=== PATIENT | female | born 1990 | race Caucasian/White ===

== ENCOUNTER → 2020-09-23 09:09 | Outpatient (CLI) | payer OTHER, MEDICAID, SELFPAY ==
--- NOTE | 2020-09-23 | DI.MRI.S_ITS ---
PROCEDURE: MR PELIS WO/W CON INDICATIONS: Full incontinence of feces TECHNIQUE: Noncontrast axial and coronal T1 spin echo and STIR through the lumbosacral plexus region. Optional contrast may be given, followed by axial and coronal T1 spin echo with fat saturation through the sacral plexus. COMPARISON: None. FINDINGS: Image quality: Excellent. Lumbosacral plexus: Superior to the piriformis muscles, the pre-plexal structures appear normal, including the lumbosacral trunk and S1 root. Just anterior to the piriformis muscles, the sacral plexus proper demonstrates normal morphology (lumbosacral trunk, S1 to S3 nerve roots). Inferior to the piriformis muscles, the sciatic nerves appear normal. Soft tissues: The piriformis muscles appear symmetric in size. No presacral masses. Rectum appears normal in caliber and wall thickness. No pathologic free pelvic fluid. No visualized adenopathy by size criteria. Bones: Marrow is normal in overall signal. IMPRESSION: There is no evidence for presence of mass or inflammation impinging on the lumbosacral plexus. Morphology of the plexus is normal, no presacral inflammatory or neoplastic process is suspected. The visualized rectum appears normal morphologically. Etiology of current symptomatology is not found. Defacography evaluation may be warranted. Dictated by: Maxwell Hernandez M.D. on 09/23/2020 at 11:36 Approved by: Maxwell Hernandez M.D. on 09/23/2020 at 11:43
== END ==
PROVIDERS: Referring Provider Surgery; Visit Provider Surgery
DX: R15.9 Full incontinence of feces (principal)
CPT/HCPCS: 72197

== ENCOUNTER → 2024-01-19 14:42 | Outpatient (CLI) | payer OTHER, MEDICAID, SELFPAY ==
[2024-01-20 13:36] LABS: Candida species Negative (Negative); Gardnerella vaginalis Positive (Negative); Trichomoas vaginalis Negative (Negative)
== END ==
PROVIDERS: PCP Internal Medicine; Visit Provider Obstetrics & Gynecology
DX: N89.8 Other specified noninflammatory disorders of vagina (principal)
CPT/HCPCS: 87480; 87510; 87660

== ENCOUNTER → 2024-06-21 14:56 | Outpatient (CLI) | payer OTHER, SELFPAY ==
[2024-06-24 10:23] LABS: Candida species Negative (Negative); Gardnerella vaginalis Negative (Negative); Trichomoas vaginalis Negative (Negative)
== END ==
PROVIDERS: PCP Internal Medicine; Visit Provider Specialist
DX: N89.8 Other specified noninflammatory disorders of vagina (principal)
CPT/HCPCS: 87480; 87510; 87660

== ENCOUNTER 2024-06-28 17:59 | Emergency (ER) | payer OTHER, SELFPAY ==
[2024-06-28 18:25] VITALS: BP 128/71; PULSE 87; RESP 16; TEMP 36.2; O2SAT 99; BMI 40.0
[2024-06-28 19:00] LABS: Appearance Urine UA CLEAR; Bilirubin Urine UA NEGATIVE (NEGATIVE); Color Urine UA YELLOW; Glucose Urine UA NEGATIVE (Negative); Ketones Urine UA NEGATIVE (NEGATIVE); Leukocyte Esterase Urine UA NEGATIVE (NEGATIVE); Nitrite Urine UA NEGATIVE (Negative); Occult Blood Urine UA NEGATIVE (Negative); Protein Urine UA NEGATIVE (Negative); Specific Gravity Urine UA <=1.005 (1.000-1.035); Urobilinogen Urine UA 0.2 E.U./dL (0.2)
[2024-06-28 19:03] LABS: pH Urine UA 6.5 (4.5-8.0)
[2024-06-28 19:04] LABS: Pregnancy Test Urine Positive (Negative)
[2024-06-28 19:07] LABS: Bacteria Urine None Seen; Culture Indicated Urine Cult Not Indicated; RBC Urine None Seen (0-5/HPF); Squamous Epithelial Cell Urine None Seen (0-5/HPF); Urine Volume 10mL (spun); WBC Urine None Seen (0-5/HPF)
--- NOTE | 2024-06-28 20:01 | ED.PREGNANCY ---
HPI - General Chief complaint: Vaginal Bleeding Stated complaint: 7 wks, vaginal discharge Time Seen by Provider: 06/28/24 19:58 History of Present Illness HPI Narrative: at approximately 7 weeks gestational age presents for brown vaginal discharge. Denies abdominal pain. Already has confirmed IUP. Scheduled appointment with OBGYN next week. She states she noticed the discharge today and the OB triage line told her to come to the ER for an ultrasound for ?peace of mind?. Related Data Home Medications Medication Instructions Recorded Confirmed vitamin-ferrous sulfate tab PO 06/19/24 06/19/24 27 mg iron-folic acid 0.8 mg tablet Previous Rx's Medication Instructions Recorded enoxaparin 40 mg/0.4 mL 40 mg (0.4 mL) SUBCUT DAILY 06/21/24 subcutaneous syringe History of pulmonary embolus #30 multiple units Allergies Allergy/AdvReac Type Severity Reaction Status Date / Time latex [LATEX] Allergy Intermediate Rash Unverified 06/19/24 09:05 fluoxetine AdvReac Intermediate anger Verified 06/19/24 09:05 Exam Initial Vital Signs Initial Vital Signs: Vital Signs Temperature 97.1 F L 06/28/24 18:25 Pulse Rate 87 06/28/24 18:25 Respiratory Rate 16 06/28/24 18:25 Blood Pressure 128/71 06/28/24 18:25 Pulse Oximetry 99 06/28/24 18:25 Oxygen Delivery Method Room Air 06/28/24 18:25 Const: Awake, alert, no acute distress, nontoxic appearing Cardiac: regular rate, regular rhythm RESP: unlabored, conversational without dyspnea GI: Soft, nontender, nondistended Skin: Warm, Dry, intact, no rashes Neuro: AO x3, CN II-XII grossly intact, moves all extremities Course Orders Ordered: ED Orders 06/28/24 18:33 Test Urine Stat Urinalysis and Microscopic Stat 06/28/24 20:01 US OB <= 14 weeks fetus Stat 06/28/24 20:20 ABO RH Type Stat CBC Auto Diff [Complete Blood Count AUTO DIFF] Stat Vital Signs Vital signs: Vital Signs - 8 hr 06/28/24 18:25 Temperature 97.1 F L Pulse Rate 87 Respiratory Rate 16 Blood Pressure 128/71 Pulse Oximetry 99 Oxygen Delivery Method Room Air MDM - OB/Uterine Contractions Lab Data 06/28/24 20:20 Labs: Lab Results 06/28/24 06/28/24 Range/Units 18:33 20:20 WBC 6.4 (4.5-11.0) X10^3/uL RBC 4.23 (4.0-5.2) X10^6/uL Hgb 13.2 (12.0-16.0) g/dL Hct 38.8 (36-46) % MCV 91.7 (80-100) fL MCH 31.4 (26-34) PG MCHC 34.2 (30-36) % RDW 13.0 (11.6-14.8) % Plt Count 316 (150-400) X10^3/uL Neut % (Auto) 66.0 (50-75) % Lymph % (Auto) 23.9 L (25-40) % [place] % (Auto) 7.9 (3-14) % Eos % (Auto) 1.8 L (2-4) % Baso % (Auto) 0.4 (0-2) % Neut # (Auto) 4200 (2980-7790) /uL Lymph # (Auto) 1500 (6590-1896) /uL [place] # (Auto) 500 (0-900) /uL Eos # (Auto) 100 (0-450) /uL Baso # (Auto) 0 (0-100) /uL Urine Color Yellow Urine Appearance Clear Urine pH 6.5 (4.5-8.0) Ur Specific [place] <=1.005 (1.000-1.035) Urine Protein Negative (Negative) Urine Glucose (UA) Negative (Negative) g/dL Urine Ketones Negative (NEGATIVE) Urine Occult Blood Negative (Negative) Urine Nitrate Negative (Negative) Urine Bilirubin Negative (NEGATIVE) Urine Urobilinogen 0.2 (0.2) E.U./dL Ur Leukocyte Esterase Negative (NEGATIVE) Urine RBC None seen (0-5/HPF) Urine WBC None seen (0-5/HPF) Ur Squamous Epith Cells None seen (0-5/HPF) Urine Bacteria None seen (None) Ur Culture Indicated? Cult not indicated Vol Urine Centrifuged 10ml (spun) Urine Test Positive H (Negative) Blood Type A Positive Imaging Data US - OB: Radiologist's Impression: PROCEDURE: US OB <= 14 WEEKS FETUS INDICATIONS: vag bleed early preg OUTSIDE/PRIOR DATING DATA: Last menstrual period (LMP): 05/11/2024. LMP-based estimated date of delivery (ELIANA): 02/18/2025. TECHNIQUE: Real-time scanning was performed of the fetus and maternal pelvic organs, with image documentation. Endovaginal scanning was also performed to better visualize the fetus and maternal ovaries. COMPARISON: None. FINDINGS: Embryo: Intrauterine yolk sac is visualized. [place]-rump length measures 0.6 cm corresponding to estimated gestational age of 6 weeks, 3 days. Heart rate: 157 Maternal organs: Ovaries are within normal limits. Right corpus luteum cyst visualized. IMPRESSION: Single intrauterine gestation with estimated gestational age of 6 weeks, 3 days based on crown-rump length. heart rate detected. Approved by: Melissa Soto M.D.,Ph.D. on 06/28/2024 at 22:07 MDM Narrative Medical decision making narrative: vaginal discharge in early . Already confirmed IUP. Patient declined lab draw HCG quant. single IUP with heart tones detected. Patient eloped from ED prior to receiving instructions. Has OB appointment next week with Dr. De Jesus Discharge Plan Departure Patient Disposition: Elopement Clinical Impression: Eloped from emergency department, Vaginal discharge during Prescriptions: No Action vit-ferrous sulfat-FA 27 mg iron- 0.8 mg tablet PO enoxaparin 40 mg/0.4 mL syringe 40 mg SUBCUT DAILY Qty: 30 8RF Referrals: Jared Thakkar MD [Primary Care Provider] -
[2024-06-28 20:31] LABS: Add Manual Diff / Slide Review NO; Basophils Absolute Auto 0 /uL (0-100); Basophils Percent Auto 0.4 % (0-2); Eosinophils Absolute Auto 100 /uL (0-450); Eosinophils Percent Auto 1.8 % (2-4); Hematocrit 38.8 % (36-46); Hemoglobin 13.2 g/dL (12.0-16.0); Lymphocytes Absolute Auto 1500 /uL (1100-4500); Lymphocytes Percent Auto 23.9 % (25-40); Mean Corpuscular HGB Conc 34.2 % (30-36); Mean Corpuscular Hemoglobin 31.4 PG (26-34); Mean Corpuscular Volume 91.7 fL (80-100); Monocytes Absolute Auto 500 /uL (0-900); Monocytes Percent Auto 7.9 % (3-14); Neutrophils Absolute Auto 4200 /uL (1500-7000); Platelet Count 316 X10^3/uL (150-400); Red Blood Cell Count 4.23 X10^6/uL (4.0-5.2); White Blood Cell Count 6.4 X10^3/uL (4.5-11.0)
--- NOTE | 2024-06-28 22:18 | PC.NURSE ---
pt stated her daughter called and said her dog got her so she needed to leave and go home, she asked if her results would show on her portal, pt stated she also had a doctor's appt on Mon. Dr Sutherland informed. pt aao x 3 ambulatory without any difficulty resp even and unlabored
== END 2024-06-28 22:04 | disposition left against medical advice (07) ==
PROVIDERS: Emergency Provider Emergency Medicine; PCP Internal Medicine
DX: O99.891 Other specified diseases and conditions complicating pregnancy (principal); N89.8 Other specified noninflammatory disorders of vagina; Z3A.01 Less than 8 weeks gestation of pregnancy
CPT/HCPCS: 76801; 76817; 81001; 81025; 85025; 86900; 86901; 99283; 99284

== ENCOUNTER → 2024-07-03 11:32 | Outpatient (CLI) | payer OTHER, SELFPAY ==
[2024-07-03 14:46] LABS: Urine N gonorrhoeae NOT DETECTED
[2024-07-03 15:01] LABS: Urine Chlamydia NOT DETECTED
== END ==
PROVIDERS: PCP Internal Medicine; Visit Provider Obstetrics & Gynecology
DX: Z34.81 Encounter for supervision of other normal pregnancy, first trimester (principal); Z11.3 Encounter for screening for infections with a predominantly sexual mode of transmission
CPT/HCPCS: 87491; 87591

== ENCOUNTER → 2024-07-24 12:26 | Outpatient (CLI) | payer OTHER, SELFPAY ==
[2024-07-24 13:35] LABS: Natera Collection Specimen Collected
[2024-07-24 13:49] LABS: Add Manual Diff / Slide Review NO; Basophils Absolute Auto 0 /uL (0-100); Basophils Percent Auto 0.3 % (0-2); Eosinophils Absolute Auto 200 /uL (0-450); Eosinophils Percent Auto 2.7 % (2-4); Hematocrit 38.7 % (36-46); Hemoglobin 13.3 g/dL (12.0-16.0); Lymphocytes Absolute Auto 2900 /uL (1100-4500); Lymphocytes Percent Auto 32.7 % (25-40); Mean Corpuscular HGB Conc 34.4 % (30-36); Mean Corpuscular Hemoglobin 31.3 PG (26-34); Mean Corpuscular Volume 90.9 fL (80-100); Monocytes Absolute Auto 400 /uL (0-900); Monocytes Percent Auto 4.9 % (3-14); Neutrophils Absolute Auto 5300 /uL (1500-7000); Neutrophils Percent Auto 59.4 % (50-75); Platelet Count 330 X10^3/uL (150-400); Red Blood Cell Count 4.26 X10^6/uL (4.0-5.2); Red Cell Distribution Width 13.5 % (11.6-14.8)
[2024-07-24 14:02] LABS: Alanine Aminotransferase 20 IU/L (<35); Aspartate Aminotransferase 22 IU/L (14-36); BUN Creatinine Ratio 15.2 (6-22); Blood Urea Nitrogen 7 mg/dL (7-17); Estimated Glomerular Filt Rate > 60 mL/min (>60); Uric Acid 3.4 mg/dL (2.5-6.2)
[2024-07-25 22:26] LABS: Hepatitis B Surface Antigen NEGATIVE s/c (NEGATIVE); Rubella Antibody IgG 1.3 IU/mL (>15)
[2024-07-25 22:41] LABS: HIV 1 & 2 Ab/Ag 4th Gen Combo NEGATIVE (NEGATIVE); Hep C Virus Ab w/Reflex Quant NEGATIVE s/c (NEGATIVE)
[2024-07-26 05:09] LABS: RPR Screen Non Reactive (Non Reactive)
[2024-07-26 09:39] LABS: Varicella IgG Antibody Reactive (Non Reactive)
== END ==
PROVIDERS: Specialist; PCP Internal Medicine; Referring Provider Obstetrics & Gynecology; Visit Provider Obstetrics & Gynecology
DX: O09.299 Supervision of pregnancy with other poor reproductive or obstetric history, unspecified trimester (principal); O99.210 Obesity complicating pregnancy, unspecified trimester; O09.899 Supervision of other high risk pregnancies, unspecified trimester
CPT/HCPCS: 36415; 80055; 82565; 83036; 84450; 84460; 84520; 84550; 86787; 86803; 86850; 86900; 86901; 87086; 87389

== ENCOUNTER → 2024-08-26 11:11 | Outpatient (CLI) | payer OTHER, SELFPAY ==
[2024-08-26 12:06] LABS: Add Manual Diff / Slide Review NO; Basophils Absolute Auto 0 /uL (0-100); Basophils Percent Auto 0.2 % (0-2); Eosinophils Absolute Auto 300 /uL (0-450); Eosinophils Percent Auto 2.7 % (2-4); Hematocrit 34.6 % (36-46); Lymphocytes Absolute Auto 2200 /uL (1100-4500); Lymphocytes Percent Auto 20.8 % (25-40); Mean Corpuscular HGB Conc 34.6 % (30-36); Mean Corpuscular Hemoglobin 31.1 PG (26-34); Monocytes Absolute Auto 500 /uL (0-900); Monocytes Percent Auto 4.4 % (3-14); Neutrophils Absolute Auto 7500 /uL (1500-7000); Neutrophils Percent Auto 71.9 % (50-75); Platelet Count 239 X10^3/uL (150-400); Red Blood Cell Count 3.85 X10^6/uL (4.0-5.2); Red Cell Distribution Width 13.2 % (11.6-14.8); White Blood Cell Count 10.5 X10^3/uL (4.5-11.0)
== END ==
PROVIDERS: PCP Internal Medicine; Referring Provider Specialist; Visit Provider Specialist
DX: O20.9 Hemorrhage in early pregnancy, unspecified (principal)
CPT/HCPCS: 36415; 85025

== ENCOUNTER → 2024-09-12 11:02 | Outpatient (CLI) | payer OTHER, SELFPAY ==
[2024-09-14 18:36] LABS: AFP Value 32.6 ng/mL (.); Gest Age on Col Date 17.7 weeks (.); Insulin Dep Diabetes No (.); OSBR Risk 1IN 10000 (.); Results Report (.); Test Results *Screen Negative* (.)
[2024-09-18 07:51] LABS: PDF SEE SCANNED REPORTS
== END ==
PROVIDERS: PCP Internal Medicine; Referring Provider Specialist; Visit Provider Specialist
DX: Z34.82 Encounter for supervision of other normal pregnancy, second trimester (principal)
CPT/HCPCS: 36415; 82105

== ENCOUNTER → 2024-10-04 13:31 | Outpatient (CLI) | payer OTHER, SELFPAY ==
--- NOTE | 2024-10-04 13:33 | DI.US.S_ITS ---
PROCEDURE: US OB >= 14 WEEKS FETUS INDICATIONS: ANATOMY OUTSIDE/PRIOR DATING DATA: Working ELIANA: 02/15/2025 TECHNIQUE: Real-time scanning was performed of the fetus, with image documentation and biometric measurements. Endovaginal scanning: Not performed COMPARISON: Outside Facility, US, US OB >= 14 WEEKS FETUS, 09/19/2024, 9:46. FINDINGS: General: A single living intrauterine gestation is present. Presentation: Variable. Placenta: Placental position is anterior , without previa. Amniotic fluid index: 14.9 cm, normal range is 5-24 cm. Single deepest vertical pocket is 5.9 cm. heart rate: 150 beats per minute. Maternal cervical canal: 2.8 cm long. Normal lower limit is 2.5 cm. biometrics: Biparietal diameter: 4.8 cm, 20 weeks 3 days Head circumference: 17.4 cm, 20 weeks 0 days Abdominal circumference: 15.3 cm, 20 weeks 4 days Femur length: 3.3 cm, 20 weeks 3 days Clinically estimated gestational age: 20 weeks 6 days Composite gestational age from present scan: 20 weeks 3 days Estimated weight and percentile: 354 g, 24 percentile Anatomic survey: Neuro: Ventricles are non-dilated at less than 10 mm. Cisterna magna measures 2.7 mm (normal range of 3 mm). Cerebellum is normal in size and morphology. Nuchal skin fold: Normal at less than 6 mm between 14-21 weeks gestational age. Face: Nose and lips, facial profile are normal. Spine: No evidence for spina bifida. Heart: 4-chambered heart is present, with normal ventricular outflow tracts. Diaphragm: Diaphragm is intact. Stomach: Left-sided stomach is present. Kidneys: No hydronephrosis. Normal is less than 5 mm in 2nd trimester, less than 7 mm in 3rd trimester. Cord: 3-vessel cord has orthotopic insertion. Bladder: Normal in size. Extremities: All 4 extremities identified. IMPRESSION: Single living intrauterine at 20 weeks 6 days, ELIANA 02/15/2025. Estimated weight of 354 g, 24th percentile. Head circumference is small for gestational age at 9%. Cisterna magna measures 2.7 mm, which should technically measure 3 mm at this age. However, this could be due to positioning . Short-term follow-up could be considered. Posterior succenturiate lobe not appreciated. We strive to produce accurate, complete, and clear reports of imaging services. To assist us in improving patient care, this report was composed using standard report templates and voice recognition software. Therefore, it may contain abnormal punctuation, insertions and/or omissions. Occasional wrong-word or sound-alike substitutions may occur. Though we review the report and make efforts to correct it, we do recommend that the report be read carefully in proper context to recognize any text inaccuracies. Dictated by: Trevon Valdivia M.D. on 10/05/2024 at 7:28 Approved by: Trevon Valdivia M.D. on 10/05/2024 at 7:37
== END ==
PROVIDERS: PCP Internal Medicine; Referring Provider Specialist; Visit Provider Specialist
DX: Z34.92 Encounter for supervision of normal pregnancy, unspecified, second trimester (principal); Z3A.20 20 weeks gestation of pregnancy
CPT/HCPCS: 76811

== ENCOUNTER 2024-11-02 13:24 | Emergency (ER) | payer OTHER, SELFPAY ==
[2024-11-02] VITALS (8 sets, daily range): BP systolic 112–134; BP diastolic 60–75; PULSE 64–87; RESP 16; TEMP 36.9–37; O2SAT 91–100; BMI 42.0
--- NOTE | 2024-11-02 14:10 | ED.HA ---
HPI - Headache General Chief Complaint: Headache Stated Complaint: headache for 2 days 25 weeks Time Seen by Provider: 11/02/24 13:43 Mode of arrival: Ambulatory History of Present Illness HPI Narrative: 34y F with Hx of PE on lovenox and aspirin after 1st delivery, pre-eclampsia ELIANA 02/15/25 presents with headache whereby lights, sound bother her took tylenol at 8am with no relief of symptoms that starts in the front right side in moves all the way to the top of head along with nausea but no vomiting, diarrhea, chest pain, shortness of breath, fever, chills, stiff neck, . rash. No complications with this thus far. Other than what is stated 14 point review of system is negative. Related Data Home Medications ?Medication ?Instructions ?Recorded ?Confirmed vitamin-ferrous sulfate tab PO 06/19/24 10/10/24 27 mg iron-folic acid 0.8 mg tablet Previous Rx's ?Medication ?Instructions ?Recorded enoxaparin 40 mg/0.4 mL 40 mg (0.4 mL) SUBCUT DAILY 06/21/24 subcutaneous syringe History of pulmonary embolus #30 multiple units fluconazole 150 mg tablet 150 mg PO Q3D 2 doses #2 tabs 09/20/24 hydrocodone 5 mg-acetaminophen 300 1 tab PO Q4-6H PRN pain #20 tabs //25 mg tablet hydrocodone 5 mg-acetaminophen 300 1 tab PO Q4-6H PRN pain #20 tabs 06//25 mg tablet hydrocodone 5 mg-acetaminophen 325 1 tab PO Q4-6H PRN pain #20 tabs //25 mg tablet Allergies Allergy/AdvReac Type Severity Reaction Status Date / Time latex (LATEX) Allergy Intermediate Rash Verified 11/02/24 14:41 fluoxetine AdvReac Intermediate anger Verified 11/02/24 14:41 Patient History Medical History (Updated 11/02/24 @ 16:21 by Filipe Cruz DO) Preeclampsia Pulmonary embolism affecting (~2007) Surgical History (Updated 06/21/24 @ 15:15 by Zoë Gama MD) History of gynecologic surgery (~10/2008) History of rectal surgery (~07/19/22) Family History (Updated 06/19/24 @ 09:29 by Nichole Negrete RN) Mother Psychiatric disorder Hypothyroidism Diabetes mellitus Kidney stones DVT (deep venous thrombosis) Stroke Depression Anxiety Father Prediabetes Grandmother Lung cancer Smoker Grandmother Alcoholism Aunt Bipolar disorder Schizophrenia Daughter Anxiety Depression Social History marital status: unmarried,living together number of children: 1 household members: significant other and children lives independently: Yes caregiver/support person: Yes housing: apartment pets and animals: Yes (dog) education level: other occupational status: employed current occupational exposures/hazards: No special gabe needs: No travel history: over 6 months ago seatbelt use: always water heater temp set < 120 deg: Yes working smoke detector in home: Yes fire extinguisher in home: Yes carbon monox detector in home: Yes firearms in home: No do you feel safe at home: Yes Smoking Status: Current some day smoker Tobacco: How many years used: 18 quit status: considering quitting second hand exposure: Yes alcohol intake: former substance use type: marijuana during the past year weight has: remained stable well-balanced diet: about half the time daily servings fruits/ve-4 caffeine: Yes (16 ounce coffee, sips throughout the day) Type(s) of exercise: walking additional social history: Pt's mother was recently released from the hospital on hospice care, pt appears to be heavily involved in the situation but it is unclear how much responsibility she has for her mother's care as they do not live together. Smoking Status: Current some day smoker Exam Initial Vital Signs Initial Vital Signs: Vital Signs Temperature 98.6 F 11/02/24 13:28 Pulse Rate 85 11/02/24 13:28 Respiratory Rate 16 11/02/24 13:28 Blood Pressure 134/75 11/02/24 13:28 Pulse Oximetry 98 11/02/24 13:28 Oxygen Delivery Method Room Air 11/02/24 13:28 Course Orders Ordered: ED Orders 11/02/24 14:18 Urinalysis and Microscopic Stat 11/02/24 14:53 CBC Auto Diff [Complete Blood Count AUTO DIFF] Stat CMP [Comprehensive Metabolic Panel] Stat Discontinued Medications Hydrocodone Bitart/Acetaminophen (Hydrocodone/Acet 5/325 Tablet) 1 tab PO NOW ONE Stop: 11/02/24 14:29 Last Admin: 11/02/24 14:41 Dose: 1 tab Documented By: LM Vital Signs Vital signs: Vital Signs - 8 hr 11/02/24 13:28 11/02/24 14:17 11/02/24 14:18 Temperature 98.6 F Pulse Rate 85 87 Respiratory Rate 16 Blood Pressure 134/75 129/67 Pulse Oximetry 98 93 Oxygen Delivery Method Room Air 11/02/24 14:18 11/02/24 14:30 11/02/24 14:30 Temperature Pulse Rate 83 81 Respiratory Rate Blood Pressure 120/66 Pulse Oximetry 99 96 Oxygen Delivery Method 11/02/24 15:00 11/02/24 16:06 11/02/24 16:07 Temperature Pulse Rate 73 79 75 Respiratory Rate Blood Pressure Pulse Oximetry 91 93 98 Oxygen Delivery Method 11/02/24 16:07 Temperature Pulse Rate Respiratory Rate Blood Pressure 115/60 Pulse Oximetry Oxygen Delivery Method MDM - Headache Lab Data 11/02/24 14:53 11/02/24 14:53 Labs: Lab Results 11/02/24 11/02/24 Range/Units 14:18 14:53 WBC 10.5 (4.5-11.0) X10^3/uL RBC 3.52 L (4.0-5.2) X10^6/uL Hgb 11.0 L (12.0-16.0) g/dL Hct 32.3 L (36-46) % MCV 91.7 (80-100) fL MCH 31.4 (26-34) PG MCHC 34.2 (30-36) % RDW 14.4 (11.6-14.8) % Plt Count 318 (150-400) X10^3/uL Neut % (Auto) 72.6 (50-75) % Lymph % (Auto) 20.9 L (25-40) % [place] % (Auto) 4.4 (3-14) % Eos % (Auto) 1.7 L (2-4) % Baso % (Auto) 0.4 (0-2) % Neut # (Auto) 7700 H (0569-9052) /uL Lymph # (Auto) 2200 (3048-7614) /uL [place] # (Auto) 500 (0-900) /uL Eos # (Auto) 200 (0-450) /uL Baso # (Auto) 0 (0-100) /uL Sodium 133 L (137-145) mmol/L Potassium 3.8 (3.4-5.1) mmol/L Chloride 106 (98-107) mmol/L Carbon Dioxide 23 (22-32) mmol/L BUN 5 L (7-17) mg/dL Creatinine 0.45 L (0.52-1.04) mg/dL Estimated GFR > 60 (>60) mL/min BUN/Creatinine Ratio 11.1 (6-22) Glucose 85 (70-99) mg/dL Calcium 8.7 (8.4-10.2) mg/dL Total Bilirubin 0.4 (0.2-1.3) mg/dL AST 19 (14-36) IU/L ALT 14 (<35) IU/L Alkaline Phosphatase 46 (38-126) U/L Total Protein 6.4 (6.3-8.2) g/dL Albumin 3.4 L (3.5-5.0) g/dL Globulin 3.0 (1.7-4.1) g/dL Albumin/Globulin Ratio 1.1 (1.0-2.8) Urine Color Yellow Urine Appearance Clear Urine pH 6.5 (4.5-8.0) Ur Specific [place] <=1.005 (1.000-1.035) Urine Protein Negative (Negative) Urine Glucose (UA) Negative (Negative) g/dL Urine Ketones 1+ H (NEGATIVE) Urine Occult Blood Negative (Negative) Urine Nitrate Negative (Negative) Urine Bilirubin Negative (NEGATIVE) Urine Urobilinogen 0.2 (0.2) E.U./dL Ur Leukocyte Esterase Negative (NEGATIVE) Urine RBC None seen (0-5/HPF) Urine WBC 0-1/hpf (0-5/HPF) Ur Squamous Epith Cells 0-1 /hpf (0-5/HPF) Urine Bacteria None seen (None) Ur Culture Indicated? Cult not indicated Vol Urine Centrifuged 10ml (spun) MDM Narrative Medical decision making narrative: All lab work, vital signs, nurse triage note, medication list, previous ER visits all reviewed. 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 Differential diagnosis includes preeclampsia, atypical migraine, viral syndrome. All her labwork including normal white count hemoglobin stable at 11 chemistries including LFT were normal. Keep hydrated and to return with new or worsening symptoms Discharge Plan Departure Patient Disposition: Home Clinical Impression: Migraine Qualifiers: Migraine type: persistent migraine aura without cerebral infarction Status migrainosus presence: without status migrainosus Intractability: intractable Qualified Code(s): G43.519 - Persistent migraine aura without cerebral infarction, intractable, without status migrainosus Qualifiers: Weeks of gestation: 25 weeks Qualified Code(s): Z3A.25 - 25 weeks gestation of Instructions: DI for Migraine Activity Restrictions/Additional Instructions: Return with new or worsening symptoms. Take your medicines as directed. Follow up with OBGYN appointment this coming Monday. Prescriptions: New hydrocodone-acetaminophen 5-325 mg tablet 1 tab PO Q4-6H PRN (Reason: pain) Qty: 20 0RF hydrocodone-acetaminophen 5-300 mg tablet 1 tab PO Q4-6H PRN (Reason: pain) Qty: 20 0RF hydrocodone-acetaminophen 5-300 mg tablet 1 tab PO Q4-6H PRN (Reason: pain) Qty: 20 0RF No Action fluconazole 150 mg tablet 150 mg PO Q3D Qty: 2 0RF vit-ferrous sulfat-FA 27 mg iron- 0.8 mg tablet PO enoxaparin 40 mg/0.4 mL syringe 40 mg SUBCUT DAILY Qty: 30 8RF Referrals: Jared Thakkar MD [Primary Care Provider, Internal Medicine] Stand Alone Forms: Patient Portal/API
--- NOTE | 2024-11-02 14:24 | PC.NURSE ---
Pt laying on left side on stretcher w/ dark glasses on in position of comfort as pt states is 25wks . Pt denies chest pain, shortness of breath, nausea at this time. Pt states that symptoms worsen with light, movement, and noise. Call light within reach, A&Ox4, RA, NAD, breathing even/equal/unlabored at this time
[2024-11-02 14:40] LABS: Appearance Urine UA CLEAR; Bilirubin Urine UA NEGATIVE (NEGATIVE); Color Urine UA YELLOW; Glucose Urine UA NEGATIVE (Negative); Ketones Urine UA 1+ (NEGATIVE); Leukocyte Esterase Urine UA NEGATIVE (NEGATIVE); Nitrite Urine UA NEGATIVE (Negative); Occult Blood Urine UA NEGATIVE (Negative); Protein Urine UA NEGATIVE (Negative); Specific Gravity Urine UA <=1.005 (1.000-1.035); Urobilinogen Urine UA 0.2 E.U./dL (0.2)
[2024-11-02] MEDS: HYDROCODONE/ACET 5/325 TABLET 1 TAB PO (14:41)
[2024-11-02 14:43] LABS: pH Urine UA 6.5 (4.5-8.0)
[2024-11-02 14:49] LABS: Bacteria Urine None Seen; Culture Indicated Urine Cult Not Indicated; RBC Urine None Seen (0-5/HPF); Squamous Epithelial Cell Urine 0-1 /HPF (0-5/HPF); Urine Volume 10mL (spun); WBC Urine 0-1/HPF (0-5/HPF)
[2024-11-02 15:02] LABS: Add Manual Diff / Slide Review NO; Basophils Absolute Auto 0 /uL (0-100); Basophils Percent Auto 0.4 % (0-2); Eosinophils Absolute Auto 200 /uL (0-450); Eosinophils Percent Auto 1.7 % (2-4); Hematocrit 32.3 % (36-46); Lymphocytes Absolute Auto 2200 /uL (1100-4500); Lymphocytes Percent Auto 20.9 % (25-40); Mean Corpuscular HGB Conc 34.2 % (30-36); Mean Corpuscular Hemoglobin 31.4 PG (26-34); Mean Corpuscular Volume 91.7 fL (80-100); Monocytes Absolute Auto 500 /uL (0-900); Monocytes Percent Auto 4.4 % (3-14); Neutrophils Absolute Auto 7700 /uL (1500-7000); Neutrophils Percent Auto 72.6 % (50-75); Platelet Count 318 X10^3/uL (150-400); Red Blood Cell Count 3.52 X10^6/uL (4.0-5.2); Red Cell Distribution Width 14.4 % (11.6-14.8); White Blood Cell Count 10.5 X10^3/uL (4.5-11.0)
[2024-11-02 16:03] LABS: Alanine Aminotransferase 14 IU/L (<35); Albumin 3.4 g/dL (3.5-5.0); Albumin Globulin Ratio 1.1 (1.0-2.8); Alkaline Phosphatase 46 U/L (38-126); Aspartate Aminotransferase 19 IU/L (14-36); BUN Creatinine Ratio 11.1 (6-22); Bilirubin Total 0.4 mg/dL (0.2-1.3); Blood Urea Nitrogen 5 mg/dL (7-17); Calcium 8.7 mg/dL (8.4-10.2); Carbon Dioxide 23 mmol/L (22-32); Chloride 106 mmol/L (98-107); Estimated Glomerular Filt Rate > 60 mL/min (>60); Glucose 85 mg/dL (70-99); HEMOLYSIS < 15 (0-50); Potassium 3.8 mmol/L (3.4-5.1); Sodium 133 mmol/L (137-145); Total Protein 6.4 g/dL (6.3-8.2)
--- NOTE | 2024-11-02 16:11 | PC.NURSE ---
Pt resting on left side, NAD, RA, breathing even/equal/unlabored, A&Ox4. Pt c/o headache without relief from medication. Provider updated that pt c/o headache. Call light within reach, no needs at this time
== END 2024-11-02 16:43 | disposition home or self-care (01) ==
PROVIDERS: Emergency Provider Family Medicine; PCP Internal Medicine
DX: O26.92 Pregnancy related conditions, unspecified, second trimester (principal); G43.519 Persistent migraine aura without cerebral infarction, intractable, without status migrainosus; Z3A.25 25 weeks gestation of pregnancy
CPT/HCPCS: 80053; 81001; 85025; 99283

== ENCOUNTER 2024-11-04 17:09 | Outpatient (CLI) | payer OTHER, SELFPAY ==
--- NOTE | 2024-11-04 17:58 | PM.OBTRLD ---
Visit Information Visit Information Date of evaluation: 11/04/24 On-call OB Provider: Cindy Sparks Comments/Additional reasons for admission: headache, currently 09/05 Vital Signs Vital Signs: vitals reviewed over the phone with nursing, all blood pressures <140/90 PFSH Medical History (Updated 11/04/24 @ 17:59 by Cindy Sparks DO) Preeclampsia Pulmonary embolism affecting (~2007) Surgical History (Updated 06/21/24 @ 15:15 by Zoë Gama MD) History of gynecologic surgery (~10/2008) History of rectal surgery (~07/19/22) Family History (Updated 06/19/24 @ 09:29 by Nichole Negrete RN) Mother Psychiatric disorder Hypothyroidism Diabetes mellitus Kidney stones DVT (deep venous thrombosis) Stroke Depression Anxiety Father Prediabetes Grandmother Lung cancer Smoker Grandmother Alcoholism Aunt Bipolar disorder Schizophrenia Daughter Anxiety Depression Social History marital status: unmarried,living together number of children: 1 household members: significant other and children lives independently: Yes caregiver/support person: Yes housing: apartment pets and animals: Yes (dog) education level: other occupational status: employed current occupational exposures/hazards: No special gabe needs: No travel history: over 6 months ago seatbelt use: always water heater temp set < 120 deg: Yes working smoke detector in home: Yes fire extinguisher in home: Yes carbon monox detector in home: Yes firearms in home: No do you feel safe at home: Yes Tobacco: How many years used: 18 quit status: considering quitting second hand exposure: Yes alcohol intake: former substance use type: marijuana during the past year weight has: remained stable well-balanced diet: about half the time daily servings fruits/ve-4 caffeine: Yes (16 ounce coffee, sips throughout the day) Type(s) of exercise: walking additional social history: Pt's mother was recently released from the hospital on hospice care, pt appears to be heavily involved in the situation but it is unclear how much responsibility she has for her mother's care as they do not live together. Diagnosis, Plan/Disposition Final Diagnosis (1) Headache in : Status: Acute Plan/Disposition Plan: 34yo at 25+2wks presented to triage for worsening headaches in . She was seen in the ER over the weekend for headache, and received vicodin prescription, which wasn't helping. Currently in triage, her headache was a 4/10, and patient declined any IV medication for treatment. -will trial fioricet outpatient -advised to follow-up in clinic as scheduled OB Disposition: home
== END 2024-11-04 18:05 | disposition home or self-care (01) ==
LOC: LABOR 17:19 → OB 11-05 12:17
PROVIDERS: PCP Nurse Practitioner Acute Care; Referring Provider Obstetrics & Gynecology; Visit Provider Student in an Organized Health Care Education/Training Program
DX: O26.892 Other specified pregnancy related conditions, second trimester (principal); R51.9 Headache, unspecified; Z3A.25 25 weeks gestation of pregnancy
CPT/HCPCS: 59025; G0378; G0379

== ENCOUNTER → 2024-11-06 10:47 | Outpatient (CLI) | payer OTHER, SELFPAY ==
[2024-11-06 12:51] LABS: Hematocrit 31.6 % (36-46)
[2024-11-06 13:12] LABS: GTT (PREG) 1 Hour PP 50gm Dose 110 mg/dL (76-139)
== END ==
LOC: LAB 10:48
PROVIDERS: PCP Nurse Practitioner Acute Care; Referring Provider Obstetrics & Gynecology; Visit Provider Physician Assistant
DX: Z34.82 Encounter for supervision of other normal pregnancy, second trimester (principal); Z3A.26 26 weeks gestation of pregnancy
CPT/HCPCS: 36415; 82950; 85014; 85018

== ENCOUNTER → 2024-11-27 11:28 | Outpatient (CLI) | payer OTHER, SELFPAY ==
[2024-11-28 15:10] LABS: Trichomoas vaginalis Negative (Negative)
== END ==
PROVIDERS: PCP Nurse Practitioner Acute Care; Visit Provider Obstetrics & Gynecology
DX: Z11.3 Encounter for screening for infections with a predominantly sexual mode of transmission (principal); N89.8 Other specified noninflammatory disorders of vagina
CPT/HCPCS: 87480; 87491; 87510; 87563; 87591; 87660

== ENCOUNTER → 2024-12-10 08:36 | Outpatient (CLI) | payer OTHER, SELFPAY ==
--- NOTE | 2024-12-10 08:36 | DI.CT.S_ITS ---
PROCEDURE: CT HEAD/BRAIN WO CON INDICATIONS: Headaches TECHNIQUE: Noncontrast 4.5 mm thick angled axial sections acquired from the foramen magnum to the vertex, with coronal and sagittal reformats. For radiation dose reduction, the following was used: automated exposure control, adjustment of mA and/or kV according to patient size. COMPARISON: None. FINDINGS: Image quality: Excellent. Some images are limited by beam hardening artifacts most notably at the base of the skull. Ventricles and cortical sulci are within normal limits in size. No CT evidence of intracranial hemorrhage, mass lesion, mass effect, acute or subacute infarct. The orbits, scalp, calvarium, paranasal sinuses, mastoid air cells, middle ear cavities within normal limits. IMPRESSION: Negative CT head without contrast. If symptoms persist or worsen, or there is high clinical suspicion of intracranial abnormality, MRI could be performed. Dictated by: Roberth Fletcher M.D. on 12/10/2024 at 9:02 Approved by: Roberth Fletcher M.D. on 12/10/2024 at 9:28
== END ==
PROVIDERS: PCP Nurse Practitioner Acute Care; Referring Provider Obstetrics & Gynecology; Visit Provider Obstetrics & Gynecology
DX: O26.899 Other specified pregnancy related conditions, unspecified trimester (principal); R51.9 Headache, unspecified
CPT/HCPCS: 70450

== ENCOUNTER 2024-12-25 09:36 | Outpatient (CLI) | payer OTHER, SELFPAY | END 2024-12-25 10:35 | disposition home or self-care (01) | LOC: LABOR 10:14 → OB 12:59 | PROVIDERS: PCP Nurse Practitioner Acute Care; Referring Provider Obstetrics & Gynecology; Visit Provider Obstetrics & Gynecology | DX: O99.333 Smoking (tobacco) complicating pregnancy, third trimester (principal); F17.210 Nicotine dependence, cigarettes, uncomplicated; Z3A.32 32 weeks gestation of pregnancy | CPT/HCPCS: 59025; G0378; G0379 ==

== ENCOUNTER 2025-01-02 15:19 | Outpatient (CLI) | payer OTHER, SELFPAY | END 2025-01-02 16:15 | disposition home or self-care (01) | LOC: OB 01-03 08:14 | PROVIDERS: PCP Nurse Practitioner Acute Care; Referring Provider Obstetrics & Gynecology; Visit Provider Obstetrics & Gynecology | DX: O14.93 Unspecified pre-eclampsia, third trimester (principal); O99.333 Smoking (tobacco) complicating pregnancy, third trimester; F17.210 Nicotine dependence, cigarettes, uncomplicated; O99.213 Obesity complicating pregnancy, third trimester; E66.9 Obesity, unspecified; Z3A.33 33 weeks gestation of pregnancy | CPT/HCPCS: 59025; G0378; G0379 ==

== ENCOUNTER 2025-01-08 12:06 | Outpatient (CLI) | payer OTHER, SELFPAY | END 2025-01-08 13:00 | disposition home or self-care (01) | LOC: OB 01-10 07:16 | PROVIDERS: PCP Nurse Practitioner Acute Care; Referring Provider Obstetrics & Gynecology; Visit Provider Obstetrics & Gynecology | DX: O14.93 Unspecified pre-eclampsia, third trimester (principal); O99.213 Obesity complicating pregnancy, third trimester; E66.9 Obesity, unspecified; O99.333 Smoking (tobacco) complicating pregnancy, third trimester; F17.210 Nicotine dependence, cigarettes, uncomplicated; O99.513 Diseases of the respiratory system complicating pregnancy, third trimester; Z3A.34 34 weeks gestation of pregnancy | CPT/HCPCS: 59025; G0378; G0379 ==

== ENCOUNTER 2025-01-24 11:43 | Outpatient (CLI) | payer OTHER, SELFPAY ==
--- NOTE | 2025-01-24 15:12 | PM.OBTRLD ---
Visit Information Visit Information Date of evaluation: 01/24/25 Primary OB Provider: Renee De Jesus On-call OB Provider: Renee De Jesus Reason for Evaluation: Yes non-stress test [facility] Medical History (Updated 01/09/25 @ 08:22 by Renee De Jesus MD) Preeclampsia Pulmonary embolism affecting (~2007) Surgical History (Updated 06/21/24 @ 15:15 by Zoë Gama MD) History of gynecologic surgery (~10/2008) History of rectal surgery (~07/19/22) Family History (Updated 06/19/24 @ 09:29 by Nichole Negrete RN) Mother Psychiatric disorder Hypothyroidism Diabetes mellitus Kidney stones DVT (deep venous thrombosis) Stroke Depression Anxiety Father Prediabetes Grandmother Lung cancer Smoker Grandmother Alcoholism Aunt Bipolar disorder Schizophrenia Daughter Anxiety Depression Social History marital status: unmarried,living together number of children: 1 household members: significant other and children lives independently: Yes caregiver/support person: Yes housing: apartment pets and animals: Yes (dog) education level: other occupational status: employed current occupational exposures/hazards: No special gabe needs: No travel history: over 6 months ago seatbelt use: always water heater temp set < 120 deg: Yes working smoke detector in home: Yes fire extinguisher in home: Yes carbon monox detector in home: Yes firearms in home: No do you feel safe at home: Yes Tobacco: How many years used: 18 quit status: considering quitting second hand exposure: Yes alcohol intake: former substance use type: marijuana during the past year weight has: remained stable well-balanced diet: about half the time daily servings fruits/ve-4 caffeine: Yes (16 ounce coffee, sips throughout the day) Type(s) of exercise: walking additional social history: Pt's mother was recently released from the hospital on hospice care, pt appears to be heavily involved in the situation but it is unclear how much responsibility she has for her mother's care as they do not live together.
== END 2025-01-24 12:23 | disposition home or self-care (01) ==
LOC: OB 13:15
PROVIDERS: PCP Nurse Practitioner Acute Care; Referring Provider Obstetrics & Gynecology; Visit Provider Obstetrics & Gynecology
DX: O14.93 Unspecified pre-eclampsia, third trimester (principal); O99.213 Obesity complicating pregnancy, third trimester; E66.9 Obesity, unspecified; O99.333 Smoking (tobacco) complicating pregnancy, third trimester; F17.200 Nicotine dependence, unspecified, uncomplicated; Z3A.36 36 weeks gestation of pregnancy
CPT/HCPCS: 59025; 87653; G0378; G0379

== ENCOUNTER 2025-02-04 10:10 | Observation (INO) | payer OTHER, SELFPAY | END 2025-02-04 11:15 | disposition home or self-care (01) | PROVIDERS: Admitting Provider Obstetrics & Gynecology; PCP Nurse Practitioner Acute Care; Referring Provider Obstetrics & Gynecology; Visit Provider Obstetrics & Gynecology | DX: O14.93 Unspecified pre-eclampsia, third trimester (principal); O99.333 Smoking (tobacco) complicating pregnancy, third trimester; F17.200 Nicotine dependence, unspecified, uncomplicated; O99.213 Obesity complicating pregnancy, third trimester; E66.9 Obesity, unspecified; O99.513 Diseases of the respiratory system complicating pregnancy, third trimester; J45.909 Unspecified asthma, uncomplicated; Z3A.38 38 weeks gestation of pregnancy | CPT/HCPCS: 59025; G0378; G0379 ==

== ENCOUNTER 2025-02-07 12:23 | Outpatient (CLI) | payer OTHER, SELFPAY | END 2025-02-07 13:22 | disposition home or self-care (01) | LOC: LABOR 13:03 → OB 02-10 11:32 | PROVIDERS: PCP Nurse Practitioner Acute Care; Referring Provider Obstetrics & Gynecology; Visit Provider Obstetrics & Gynecology | DX: O36.8130 Decreased fetal movements, third trimester, not applicable or unspecified (principal); Z3A.38 38 weeks gestation of pregnancy | CPT/HCPCS: G0378; G0379 ==

== ENCOUNTER 2025-03-31 08:31 | Emergency (ER) | payer OTHER, SELFPAY ==
[2025-03-31] VITALS (12 sets, daily range): BP systolic 89–135; BP diastolic 55–78; PULSE 62–86; RESP 12–20; TEMP 36.6; O2SAT 93–99; BMI 41.3
--- NOTE | 2025-03-31 08:46 | EKG_ITS ---
[facility]
--- NOTE | 2025-03-31 08:46 | DI.RAD.S_ITS ---
PROCEDURE: XR CHEST 1V
[2025-03-31 09:12] LABS: Add Manual Diff / Slide Review NO; Hematocrit 35.7 % (36-46); Hemoglobin 12.1 g/dL (12.0-16.0); Lymphocytes Absolute Auto 2300 /uL (1100-4500); Mean Corpuscular HGB Conc 33.8 % (30-36); Mean Corpuscular Hemoglobin 30.3 PG (26-34); Mean Corpuscular Volume 89.5 fL (80-100); Platelet Count 263 X10^3/uL (150-400)
[2025-03-31 09:13] LABS: HEMOLYSIS < 15 (0-50)
[2025-03-31 09:14] LABS: INR 1.0 (0.9-1.3); Prothrombin Time 11.0 SECONDS (9.4-12.5)
[2025-03-31 09:16] LABS: PTT Partial Thromboplastin Tim 25 SECONDS (25.1-36.5)
[2025-03-31 09:18] LABS: Alanine Aminotransferase 52 IU/L (<35); Albumin 3.7 g/dL (3.5-5.0); Albumin Globulin Ratio 1.2 (1.0-2.8); Alkaline Phosphatase 56 U/L (38-126); Blood Urea Nitrogen 16 mg/dL (7-17); Calcium 8.9 mg/dL (8.4-10.2); Carbon Dioxide 23 mmol/L (22-32); Chloride 107 mmol/L (98-107); Creatine Kinase 49 U/L (30-135); Estimated Glomerular Filt Rate > 60 mL/min (>60); Globulin 3.2 g/dL (1.7-4.1); Glucose 94 mg/dL (70-99); Lipase 59 U/L (23-300); Magnesium 1.7 mg/dL (1.6-2.3); Potassium 3.7 mmol/L (3.4-5.1); Sodium 136 mmol/L (137-145); Total Protein 6.9 g/dL (6.3-8.2)
[2025-03-31 09:29] LABS: NT-proBNP (BNP-Adult 18+) 79 pg/mL (<125)
[2025-03-31 09:32] LABS: Troponin I < 0.012 ng/mL (0.01-0.034)
--- NOTE | 2025-03-31 09:36 | ED_ITS ---
HPI - SOB/Dyspnea
--- NOTE | 2025-03-31 09:36 | ED.SOB ---
HPI - SOB/Dyspnea General Chief Complaint: Shortness of Breath/Dyspnea Stated Complaint: SOB, left rib pain. Time Seen by Provider: 03/31/25 09:36 Source: patient, RN notes reviewed and old records reviewed Mode of arrival: Ambulatory Limitations: no limitations History of Present Illness HPI Narrative: 34-year-old female history of pulmonary embolism 17 years prior while patient is a proximally 7 weeks with just completed her Lovenox shots recently and presents with complaint of left rib pain. Patient states Monday she went to the chiropractor she states she was feeling fine and then started developed left thoracic back pain that wraps around along the ribs to the lateral side. She denies any anterior chest pain. She states it is pruritic and painful to take a deep breath. She denies fevers or chills. No nausea or vomiting. No hemoptysis or cough. No new swelling in extremities. No lightheadedness or passing out. No other GI or urinary symptoms. Patient notes her last pulmonary embolism was 17 years ago while . She states she is not currently on any daily medications she completed her prophylactic Lovenox. She is currently . She denies any allergies to medications other than latex. No tobacco, no alcohol, no recreational drugs. Related Data Home Medications ?Medication ?Instructions ?Recorded ?Confirmed vitamin-ferrous sulfate 1 tab PO DAILY 06/19/24 02/21/25 27 mg iron-folic acid 0.8 mg tablet aspirin 81 mg tablet,delayed 81 mg PO DAILY Prevent 11/06/24 02/21/25 release (Adult Low Dose Aspirin) pre-eclampsia magnesium 250 mg tablet 250 mg PO DAILY Restless legs 11/06/24 02/21/25 ferrous sulfate 137 mg (45 mg 137 mg PO DAILY 12/25/24 02/21/25 iron) tablet,extended release (Slow Fe) Previous Rx's ?Medication ?Instructions ?Recorded enoxaparin 40 mg/0.4 mL 40 mg (0.4 mL) SUBCUT DAILY 06/21/24 subcutaneous syringe History of pulmonary embolus #30 multiple units sumatriptan succinate 100 mg See Rx Instructions PO .COMPLEX 11/06/24 tablet (Imitrex) #20 tabs docusate sodium 100 mg capsule 100 mg PO DAILY 10 days #20 caps 02/12/25 enoxaparin 100 mg/mL subcutaneous 95 mg (0.95 mL) SUBCUT Q12H 30 03/31/25 syringe (Lovenox) days #57 mL Allergies Allergy/AdvReac Type Severity Reaction Status Date / Time latex (LATEX) Allergy Intermediate Rash Verified 03/31/25 08:49 fluoxetine AdvReac Intermediate anger Verified 03/31/25 08:49 Review of Systems Review of Systems ROS Unobtainable: All systems reviewed & are unremarkable except as noted in HPI and below Patient History Medical History Personal history of PE (pulmonary embolism) Preeclampsia Pulmonary embolism affecting (~2007) Surgical History History of gynecologic surgery (~10/2008) History of rectal surgery (~07/19/22) Family History Mother Psychiatric disorder Hypothyroidism Diabetes mellitus Kidney stones DVT (deep venous thrombosis) Stroke Depression Anxiety Father Prediabetes Grandmother Lung cancer Smoker Grandmother Alcoholism Aunt Bipolar disorder Schizophrenia Daughter Anxiety Depression Social History marital status: unmarried,living together number of children: 1 household members: significant other and children lives independently: Yes caregiver/support person: Yes housing: apartment pets and animals: Yes (dog) education level: other occupational status: employed current occupational exposures/hazards: No special gabe needs: No travel history: over 6 months ago seatbelt use: always water heater temp set < 120 deg: Yes working smoke detector in home: Yes fire extinguisher in home: Yes carbon monox detector in home: Yes firearms in home: No do you feel safe at home: Yes Smoking Status: Never smoker Tobacco: How many years used: 18 quit status: considering quitting second hand exposure: Yes alcohol intake: former substance use type: marijuana during the past year weight has: remained stable well-balanced diet: about half the time daily servings fruits/ve-4 caffeine: Yes (16 ounce coffee, sips throughout the day) Type(s) of exercise: walking additional social history: Pt's mother was recently released from the hospital on hospice care, pt appears to be heavily involved in the situation but it is unclear how much responsibility she has for her mother's care as they do not live together. Smoking Status: Never smoker Exam Narrative Exam Narrative: GENERAL: Alert and oriented x three, female in mild distress HEENT: Head normocephalic, atraumatic, EOMI, pupils reactive, face symmetric, moist mucous membranes NECK: Supple, full range of motion CARDIOVASCULAR: Regular rate and rhythm without murmurs, rubs or gallops. No JVD. No edema. RESPIRATORY: Breath sounds equal bilaterally, no wheezes rales or rhonchi. Patient does have tenderness over the lateral ribs at the 6 7 region, no ecchymosis or skin changes appreciated. ABDOMEN: Soft, nontender. Normoactive bowel sounds all 4 quadrants. No guarding or rebound, rigidity, no mass : No CVA tenderness EXTREMITIES: Normal range of motion, no clubbing or edema. Neurovascularly intact NEUROLOGICAL: Cranial nerves II through XII grossly intact. Moving all extremities SKIN: Warm, dry, no petechiae, no rashes or lesions. SKIN: No rash, no warmth, erythema, no vesicles or blisters. Patient's skin is nontender to touch. Initial Vital Signs Initial Vital Signs: Vital Signs Temperature 97.8 F 03/31/25 08:48 Pulse Rate 86 03/31/25 08:48 Respiratory Rate 20 03/31/25 08:48 Blood Pressure 121/68 03/31/25 08:48 Pulse Oximetry 99 03/31/25 08:48 Oxygen Delivery Method Room Air 03/31/25 08:48 Course Orders Ordered: ED Orders 03/31/25 08:46 XR chest 1V Stat EKG-12 Lead Stat 03/31/25 09:00 Complete Blood Count AUTO DIFF Stat Comprehensive Metabolic Panel Stat Lipase Stat Magnesium Stat NT-proBNP (BNP-Adult 18+) Stat PTT Partial Thromboplastin Chip Stat Prothrombin Time INR Stat Troponin & CK Cardiac Panel Stat 03/31/25 10:14 CT angio chest PE protocol Stat Discontinued Medications Aspirin (Aspirin 81 Mg Chew Tab) 324 mg PO NOW ONE Stop: 03/31/25 08:47 Last Admin: 03/31/25 10:13 Dose: Not Given Documented By: CB Enoxaparin Sodium (Enoxaparin 100 Mg/Ml Syringe) 95 mg 1 mg/kg (95 mg) SUBCUT NOW ONE Stop: 03/31/25 11:09 Last Admin: 03/31/25 11:34 Dose: 95 mg Documented By: RICHIE Sodium Chloride (Normal Saline 0.9%) 1,000 mls @ 1,000 mls/hr IV BOLUS ONE Stop: 03/31/25 11:13 Last Infusion: 03/31/25 12:53 Dose: Infused Documented By: Admin: 03/31/25 10:44 Dose: 1,000 mls/hr Documented By: ROXANA Ketorolac Tromethamine (Ketorolac 30 Mg/Ml Vial) 15 mg IV NOW ONE Stop: 03/31/25 10:25 Last Admin: 03/31/25 10:43 Dose: 15 mg Documented By: ROXANA Vital Signs Vital signs: Vital Signs - 8 hr 03/31/25 08:48 03/31/25 08:58 03/31/25 09:00 Temperature 97.8 F Pulse Rate 86 84 Respiratory Rate 20 20 Blood Pressure 121/68 116/59 L Pulse Oximetry 99 97 Oxygen Delivery Method Room Air 03/31/25 09:00 03/31/25 09:30 03/31/25 09:30 Temperature Pulse Rate 80 71 Respiratory Rate 20 18 Blood Pressure 101/58 L Pulse Oximetry 98 97 Oxygen Delivery Method 03/31/25 10:00 03/31/25 10:00 03/31/25 10:08 Temperature Pulse Rate 68 67 Respiratory Rate 19 17 Blood Pressure 89/55 L Pulse Oximetry 96 98 Oxygen Delivery Method 03/31/25 10:08 03/31/25 10:38 03/31/25 10:39 Temperature Pulse Rate 74 Respiratory Rate Blood Pressure 99/56 L 101/66 Pulse Oximetry 99 Oxygen Delivery Method 03/31/25 10:39 03/31/25 11:00 03/31/25 11:00 Temperature Pulse Rate 65 62 Respiratory Rate 13 13 Blood Pressure 112/65 Pulse Oximetry 97 97 Oxygen Delivery Method 03/31/25 11:30 03/31/25 11:30 03/31/25 12:00 Temperature Pulse Rate 63 Respiratory Rate 17 Blood Pressure 111/64 135/78 Pulse Oximetry 93 Oxygen Delivery Method 03/31/25 12:00 03/31/25 14:51 Temperature Pulse Rate 65 75 Respiratory Rate 13 12 Blood Pressure 120/74 Pulse Oximetry 99 97 Oxygen Delivery Method Room Air MDM - SOB/Dyspnea Lab Data 03/31/25 09:00 03/31/25 09:00 Labs: Lab Results 03/31/25 Range/Units 09:00 WBC 10.1 (4.5-11.0) X10^3/uL RBC 3.99 L (4.0-5.2) X10^6/uL Hgb 12.1 (12.0-16.0) g/dL Hct 35.7 L (36-46) % MCV 89.5 (80-100) fL MCH 30.3 (26-34) PG MCHC 33.8 (30-36) % RDW 14.3 (11.6-14.8) % Plt Count 263 (150-400) X10^3/uL Neut % (Auto) 68.6 (50-75) % Lymph % (Auto) 22.5 L (25-40) % [place] % (Auto) 5.0 (3-14) % Eos % (Auto) 3.6 (2-4) % Baso % (Auto) 0.3 (0-2) % Neut # (Auto) 6900 (2258-1563) /uL Lymph # (Auto) 2300 (7076-5464) /uL [place] # (Auto) 500 (0-900) /uL Eos # (Auto) 400 (0-450) /uL Baso # (Auto) 0 (0-100) /uL PT 11.0 (9.4-12.5) SECONDS INR 1.0 (0.9-1.3) APTT 25 L (25.1-36.5) SECONDS Sodium 136 L (137-145) mmol/L Potassium 3.7 (3.4-5.1) mmol/L Chloride 107 (98-107) mmol/L Carbon Dioxide 23 (22-32) mmol/L BUN 16 (7-17) mg/dL Creatinine 0.56 (0.52-1.04) mg/dL Estimated GFR > 60 (>60) mL/min BUN/Creatinine Ratio 28.6 H (6-22) Glucose 94 (70-99) mg/dL Calcium 8.9 (8.4-10.2) mg/dL Magnesium 1.7 (1.6-2.3) mg/dL Total Bilirubin 0.4 (0.2-1.3) mg/dL AST 32 (14-36) IU/L ALT 52 H (<35) IU/L Alkaline Phosphatase 56 (38-126) U/L Total Creatine Kinase 49 (30-135) U/L Troponin I < 0.012 (0.01-0.034) ng/mL NT-Pro-B Natriuret Pep 79 (<125) pg/mL Total Protein 6.9 (6.3-8.2) g/dL Albumin 3.7 (3.5-5.0) g/dL Globulin 3.2 (1.7-4.1) g/dL Albumin/Globulin Ratio 1.2 (1.0-2.8) Lipase 59 (23-300) U/L ECG Data Attestation: I personally reviewed and interpreted this ECG as follows: Interpretation: Sinus rhythm, rate 81 UT 160 QRS 80 QTC of 406, S1, no acute ST elevation or depression noted. MDM Narrative Medical decision making narrative: Sinus rhythm rate 81, S1 present no acute ST-elevation depression noted. Labs labs show white count of 10 hemoglobin of 12.1 platelets of 263. INR is 1, sodium is 136 electrolytes are otherwise appropriate BUN and creatinine normal glucose is 94 LFTs are negative troponins less than 0.012 with a BNP of 79. Chest x-ray shows no acute cardiopulmonary change CT angio PE protocol acute left lower lobe pulmonary artery embolus extending in a multiple basilar segmental branches associated patchy left basilar atelectasis can not exclude early focal infarct no right heart strain incidental note made of left nephrolithiasis. 34-year-old female developed left-sided thoracic back and rib pain day after seeing the chiropractor but it is also 6 weeks from , had a prior pulmonary embolism 17 years ago while just completed her Lovenox shots recently for prophylaxis. Patient describes pleuritic left-sided pain, cardiac workup is negative chest x-ray shows no other acute change. EKG shows an S1 but no other changes. Discussed findings with the patient, we will reach out to [facility] to see if she is a candidate for intervention. Dr. Yuen, cardiology with [facility]. Patient isn't a candidate at this time. They did not feel that echo would change patient's potential for intervention and not required at this time. Defer recommendations for anticoagulation to special events driver or primary care with . Will talk with her provider. Spoke with law office assistant, Dr. [place]. Agrees to increase patient to 1 milligram/kilogram Lovenox b.i.d. she can help with short term follow up but patient will need to follow up with primary care long-term to follow up her pulmonary embolism. She agrees with this medication and dosing to continue with . Spoke with the patient we did discuss observation overnight but she would prefer to return home. She was hypotensive initially upon arrival but does not persistently after fluids. She notes that she is typically low on her blood pressure at baseline and according to the patient's records she has been intermittently low. She has not been tachycardic otherwise. She prefers to return home rather than stay overnight. Discharge Plan Departure Patient Disposition: Home Clinical Impression: Pulmonary embolism Instructions: DI for Pulmonary Embolism Activity Restrictions/Additional Instructions: Follow up with your physician. Call for an appointment. Your imaging does show a left lower lobe pulmonary artery embolism extending into multiple basilar segmental branches there has a little bit of patchy left basilar atelectasis which could possibly be causing focal infarct. Make sure that you continue to use your anticoagulants regularly. Increase your Lovenox to 1 milligram/kilogram every 12 hours. Prescription sent to [facility] in [place]. You can take your next dose a little bit early to make it work easier with our schedule. If you develop any new chest pain or shortness of breath, lightheadedness or passing out, fevers, coughing up blood, new swelling of your extremities, or other new or concerning changes return to the emergency department. Prescriptions: New enoxaparin [Lovenox] 100 mg/mL syringe 95 mg SUBCUT Q12H 30 Days Qty: 57 0RF No Action vit-ferrous sulfat-FA 27 mg iron- 0.8 mg tablet 1 tab PO DAILY enoxaparin 40 mg/0.4 mL syringe 40 mg SUBCUT DAILY Qty: 30 8RF aspirin [Adult Low Dose Aspirin] 81 mg tablet,delayed release (DR/EC) 81 mg PO DAILY magnesium 250 mg tablet 250 mg PO DAILY sumatriptan succinate [Imitrex] 100 mg tablet See Rx Instructions PO .COMPLEX Qty: 20 4RF Rx Instructions: take 1 tab at onset of headache; if no relief, may repeat 1 tab after at least 2 hrs; max = 2 tabs/24 hrs PO Slow Fe 137 mg (45 mg iron) tablet extended release 137 mg PO DAILY docusate sodium 100 mg Capsule 100 mg PO DAILY 10 Days Qty: 20 1RF Referrals: Arcelia King ARNP [Primary Care Provider, [facility]] Stand Alone Forms: Patient Portal/API
--- NOTE | 2025-03-31 10:14 | DI.CT.S_ITS ---
PROCEDURE: CT ANGIO CHEST PE PROTOCOL
[2025-03-31] MEDS: KETOROLAC 30 MG/ML VIAL 15 MG IV (10:43)
[2025-03-31] MEDS: SODIUM CHLORIDE 0.9% 1,000 ML 1000 ML IV (10:44)
[2025-03-31] MEDS: ENOXAPARIN 100 MG/ML SYRINGE 95 MG SUBCUT (11:34)
== END 2025-03-31 14:55 | disposition home or self-care (01) ==
PROVIDERS: Emergency Provider Emergency Medicine; PCP Nurse Practitioner Acute Care
DX: I26.99 Other pulmonary embolism without acute cor pulmonale (principal); Z86.711 Personal history of pulmonary embolism
CPT/HCPCS: 36415; 71045; 71275; 80053; 82550; 83690; 83735; 83880; 84484; 85025; 85610; 85730; 93005; 96361; 96372; 96374; 99284; J1650; J1885; J7030; Q9967